=== PATIENT | female | born 2000 | race Asian ===

== ENCOUNTER 2024-02-09 17:30 | Inpatient (IN) ==
--- NOTE | 2024-02-09 18:25 | Emergency Department Note ---
Impression & Plan Depression, Mood disorder ED Provider Note NAME: DINA HENRY AGE: 23 SEX: F : 2000 ARRIVES VIA: [employer] INFORMANT: Patient ED PROVIDER(S): Omkar Bardales DO CHIEF COMPLAINT: Depression HPI: Patient is a 23-year-old female with a past medical history of a suicide attempt who presents to the ER from [facility]. She notes that she has been more depressed over the past week as someone is stating that they had sex with her and she is embarrassed and notes that it never happened. She notes that she has started cutting her arms again. She likes this yourself bleed as this makes her feel more comfortable. She denies any headache or change in vision. No chest pain or shortness of breath. No nausea, vomiting, or diarrhea. No dysuria, urgency, or frequency. No other exacerbating or remitting factors. ADDITIONAL HISTORY OBTAINED: Per HPI Chronic Medical/Social Conditions Affecting Care: Per HPI PAST MEDICAL HISTORY:See Below PAST SURGICAL HISTORY:See Below FAMILY HISTORY:See Below SOCIAL HISTORY:See Below HOME MEDICATIONS:See Below ALLERGIES:See Below VITALS:See Below PHYSICAL EXAMINATION: GENERAL: Sitting up in bed, alert, well appearing, well nourished, no distress, non-toxic EYE EXAM: normal conjunctiva. PERRL and EOM's grossly intact. OROPHARYNX: no exudate, no erythema, lips, buccal mucosa, and tongue normal and mucous membranes are moist NECK: supple, no nuchal rigidity, no adenopathy, non-tender LUNGS: Clear to auscultation. Normal chest wall mechanics HEART: no murmurs, S1 normal and S2 normal ABDOMEN: abdomen soft, non-tender, normo-active bowel sounds, no masses, no rebound or guarding. BACK: Back is symmetrical on inspection and there is no deformity, no midline tenderness, no CVA tenderness. SKIN: no rashes and no bruising UPPER EXTREMITIES: upper extremities are grossly normal. LOWER EXTREMITIES: No pitting edema. NEURO EXAM: Normal sensorium, cranial nerves II-XII grossly intact, normal speech, no gross weakness of arms, no gross weakness of legs. PSYCH: No suicidal or homicidal ideations. Admits to self-harm. No auditory visual hallucinations. MEDICAL DECISION MAKING: Patient is a 23-year-old female who presents ER for above-stated complaint. IV was established blood work is obtained. Labs show no significant leukocytosis or anemia. BMP on LFTs bilirubin was unremarkable. TSH was unremarkable. UA was contaminated. Tox was negative with exception of marijuana. Alcohol negative. COVID-negative. Patient was discussed with our psychiatric care transitions manager. Referrals made to [facility]. the patient was admitted to our psychiatric unit upstairs. Consults/Care Managements Discussions: Per MDM Triage Nursing notes reviewed. Limited review of prior medical records performed Vital Signs: reviewed and remarkable for no significant abnormalities Differential diagnosis: Mood disorder, infection, hypoglycemia, electrolyte abnormalities, cardiac sources, intracerebral event, toxicologic, trauma, neurologic, as well as other pathologies. ER treatment provided: See below Diagnostics interpreted by me include EKG and cardiac monitoring as listed below: -ECG: none -Laboratory studies:Interpreted by me as stated above in MDM and shown below. Imaging studies: Xrays: As interpreted by me:none CTs show: none Procedures:none Critical Care: None Past Med/Surg History Social History Smoking Status: Current every day smoker Tobacco Type: Cigarettes and E-cigarettes / Vaping Preferred Language: Luxembourgish Communication Ability: Effective [employer] Assistant Required: No Beliefs That Will Affect Care: None Feels Safe at Home: Yes Gender Identity: Female Assistive Devices: None Allergies Allergies Allergy/AdvReac Type Severity Reaction Status Date / Time Penicillins Allergy Unknown Unknown Verified 02/09/24 19:12 Home Meds Home Medications Medication Instructions Recorded Confirmed No Known Home Medications 02/09/24 02/09/24 Results & Data (ED) Vital Signs Vital Signs - 24 hr 02/09/24 17:41 02/09/24 19:33 Temperature 36.7 C Temperature Source Temporal Artery Scan Pulse Rate 74 Pulse Rate [Finger] 70 Respiratory Rate 18 15 Respiratory Effort / Characteristics Non-Labored Spontaneous Respiratory Depth Normal Blood Pressure 123/84 Blood Pressure [Left Arm] 106/65 Blood Pressure Mean 97 Blood Pressure Mean [Left Arm] 78 Blood Pressure Position Sitting Pulse Oximetry 97 98 Oxygen Delivery Method Room Air Sepsis Recent Fever Within 48 Hours No Sepsis New/Unexplained Change in Mental Status No Sepsis Action Taken by Nursing No Action Required Laboratory Data 02/09/24 17:55 02/09/24 17:55 Lab Results 02/09/24 02/09/24 02/09/24 Range/Units 17:55 17:59 18:14 WBC 10.40 (4.8-10.8) K/ul RBC 4.98 (4.20-5.40) M/uL Hgb 14.4 (12.0-16.0) g/dl Hct 42.0 (37.0-47.0) % MCV 84.3 (80.0-100.0) fL MCH 28.9 (25.0-34.0) pg MCHC 34.3 (32.0-36.0) g/dL RDW Std Deviation 37.2 (36.4-46.3) fL RDW Coeff of Mary 12.3 (11.5-14.5) % Plt Count 254 (130-400) K/uL MPV 10.2 (9.4-12.4) fL Immature Gran % (Auto) 0.2 % Neut % (Auto) 66.7 % Lymph % (Auto) 27.6 % [place] % (Auto) 3.7 % Eos % (Auto) 1.1 % Baso % (Auto) 0.7 % Neut # (Auto) 6.95 H (1.40-6.50) K/uL Lymph # (Auto) 2.87 (1.20-3.40) K/uL [place] # (Auto) 0.38 (0.11-0.59) K/uL Eos # (Auto) 0.11 (0.00-0.50) K/uL Baso # (Auto) 0.07 (0.00-0.20) K/uL Immature Gran # (Auto) 0.02 (0.01-0.20) K/uL Sodium 137 (136-145) mmol/L Potassium 3.5 (3.5-5.1) mmol/L Chloride 105 (98-107) mmol/L Carbon Dioxide 22 (21-32) mmol/L Anion Gap 10 (3-11) BUN 11 (6-23) mg/dl Creatinine 0.76 (0.6-1.2) mg/dl Est Cr Clr Drug Dosing 129.9 ml/min Est GFR ( Amer) 130.0 ml/min Est GFR (Non-Af Amer) 112.1 ml/min BUN/Creatinine Ratio 14.5 (10-20) Glucose 117 H (70-99(Fasting)) mg/dl Calcium 9.8 (8.6-10.3) mg/dl Total Bilirubin 1.0 (0.2-1.0) mg/dl AST 12 L (13-39) U/L ALT 10 (7-52) U/L Alkaline Phosphatase 44 (34-104) U/L Total Protein 7.9 (6.0-8.3) gm/dl Albumin 4.8 (3.4-5.0) gm/dl Globulin 3.1 (2.5-4.0) gm/dl Albumin/Globulin Ratio 1.5 (0.9-2) TSH 1.417 (0.300-4.500) uIu/ml Urine Color Yellow Urine Appearance Clear (Clear) Urine pH 7.5 (4.5-7.5) Ur Specific [place] 1.024 (1.000-1.030) Urine Protein Trace H (Negative) Urine Glucose (UA) Negative (Negative) Urine Ketones Trace H (Negative) Urine Blood Negative (Negative) Urine Nitrite Negative (Negative) Urine Bilirubin Negative (Negative) Urine Urobilinogen Negative (Negative) Ur Leukocyte Esterase Trace H (Negative) Urine WBC (Auto) 0-5 (0-5) /hpf Urine RBC (Auto) 0-2 (0-2) /hpf U Hyaline Cast (Auto) 0-2 (0-2) /lpf U Epithel Cells (Auto) 11-20 H (0-2) /hpf Urine Bacteria (Auto) 1+ H (None Seen) POC Ur Test NEG (NEG) Salicylates < 3.0 L (3.0-30) mg/dl Urine Opiates Screen Neg (Neg) Ur Methadone, Qual Neg (Neg) Acetaminophen < 3 L (10-30) ug/ml Urine Barbiturates Neg (Neg) Ur Phencyclidine (PCP) Neg (Neg) U Amphetamin/Meth Scrn Neg (Neg) MDMA (Ecstasy) Screen Neg (Neg) U Benzodiazepines Scrn Neg (Neg) Ur Cocaine Metabolite Neg (Neg) U Marijuana (THC) Screen Pos H (Neg) Ethyl Alcohol mg/dL < 10.0 (<10.0) mg/dl SARS-CoV-2, RNA, NAAT NEGATIVE (NEGATIVE) Administered Medications Discontinued Medications Nicotine (Nicotine 21 Mg/24 Hr Tdsy) 1 patch TD QAM TALA Stop: 03/10/24 19:14 Last Admin: 02/09/24 19:40 Dose: 1 patch Documented By: SKFelix Discharge Plan Visit Data Chief Complaint: Mental Health Evaluation Stated Complaint: 201 ED Provider: Omkar Bardales Discharge Problem: Depression, Mood disorder Patient Disposition: Admitted As Inpatient Discharge Instructions Interventions: ED Discharge Assessment Last Done: 02/09/24 21:05 Discharge Problem: Depression Qualifiers: Depression Type: unspecified Qualified Code(s): F32.A - Depression, unspecified
[2024-02-09 18:26] LABS: Basophils # (auto) 0.07 K/uL (0.00-0.20); Basophils % (auto) 0.7 %; Eosinophils # (auto) 0.11 K/uL (0.00-0.50); Eosinophils % (auto) 1.1 %; Hemoglobin 14.4 g/dl (12.0-16.0); Immature Granulocytes # (auto) 0.02 K/uL (0.01-0.20); Immature Granulocytes % (auto) 0.2 %; Lymphocytes # (auto) 2.87 K/uL (1.20-3.40); Lymphocytes % (auto) 27.6 %; Mean Corpuscular Hemoglobin 28.9 pg (25.0-34.0); Mean Corpuscular Hgb Conc 34.3 g/dL (32.0-36.0); Mean Corpuscular Volume 84.3 fL (80.0-100.0); Mean Platelet Volume 10.2 fL (9.4-12.4); Monocytes # (auto) 0.38 K/uL (0.11-0.59); Monocytes % (auto) 3.7 %; Neutrophils # (auto) 6.95 K/uL (1.40-6.50); Neutrophils % (auto) 66.7 %; Platelet Count 254 K/uL (130-400); RDW Coefficient of Variation 12.3 % (11.5-14.5); RDW Standard Deviation 37.2 fL (36.4-46.3); Red Blood Count 4.98 M/uL (4.20-5.40)
[2024-02-09 18:36] LABS: Appearance Urine Clear (Clear); Bacteria Urine Automated 1+ (None Seen); Bilirubin Urine Negative (Negative); Blood Urine Negative (Negative); Cast Urine Automated 0-2 /lpf (0-2); Color Urine Yellow; Glucose Urine UA Negative (Negative); Ketones Urine Trace (Negative); Leukocyte Esterase Urine Trace (Negative); Nitrite Urine Negative (Negative); Protein Urine Trace (Negative); Specific Gravity Urine 1.024 (1.000-1.030); Urobilinogen Urine Negative (Negative); WBC Urine Automated 0-5 /hpf (0-5); pH Urine 7.5 (4.5-7.5)
[2024-02-09 18:41] LABS: Albumin Globulin Ratio 1.5 (0.9-2); Albumin Level 4.8 gm/dl (3.4-5.0); BUN Creatinine Ratio 14.5 (10-20); Calcium 9.8 mg/dl (8.6-10.3); Creatinine Clr Calc Pharmacy 129.9 ml/min; Est GFR (Non-African American) 112.1 ml/min; Globulin 3.1 gm/dl (2.5-4.0); Potassium 3.5 mmol/L (3.5-5.1); Total Protein 7.9 gm/dl (6.0-8.3)
[2024-02-09 18:50] LABS: Acetaminophen < 3 ug/ml (10-30); Salicylate < 3.0 mg/dl (3.0-30)
[2024-02-09 18:51] LABS: RBC Urine Automated 0-2 /hpf (0-2)
[2024-02-09 18:56] LABS: Thyroid Stimulating Hormone 1.417 uIu/ml (0.300-4.500)
[2024-02-09 19:12] LABS: Amphetamines+Metham, Urine Neg (Neg); Barbiturates, Urine Neg (Neg); Benzodiazepine, Urine Neg (Neg); Cocaine, Urine Neg (Neg); MDMA (Ecstacy), Urine Neg (Neg); Marijuana, Urine Pos (Neg); Methadone, Urine Neg (Neg); Opiate, Urine Neg (Neg); Phencyclidine, Urine Neg (Neg)
[2024-02-09] MEDS ORDERED: NICOTINE POLACRILEX 2 MG GUM MT PRN (19:14)
[2024-02-09] MEDS: NICOTINE 21 MG/24 HR TDSY TD SCH (19:40)
[2024-02-09] MEDS ORDERED: ACETAMINOPHEN 325 MG TAB PO PRN (21:15)
[2024-02-09] MEDS ORDERED: BISMUTH SUBSALICYLATE LIQD 236 ML PO PRN (21:15)
[2024-02-09] MEDS ORDERED: ALUMINUM/MAGNESIUM SUSP 30 ML UDC PO PRN (21:15)
[2024-02-09] MEDS ORDERED: SODIUM CHLORIDE 0.65% NA SOLN 45 ML (OCEAN) PRN (21:15)
[2024-02-09] MEDS ORDERED: MAGNESIUM HYDROXIDE SUSP 30 ML UDC PO PRN (21:15)
[2024-02-09] MEDS ORDERED: OLANZapine 5 MG TABLET PO PRN (22:47)
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
[2024-02-10] MEDS: NICOTINE 21 MG/24 HR TDSY TD SCH (09:03)
[2024-02-10] MEDS: NICOTINE POLACRILEX 2 MG GUM MT PRN (14:56)
[2024-02-10] MEDS: LITHIUM CARBONATE 300 MG TAB PO SCH (20:44)
[2024-02-10] MEDS: hydrOXYzine HCl 25 MG TAB PO PRN (22:33)
--- NOTE | 2024-02-11 13:17 | Psychiatric Progress Note ---
Date of Service February 11, 2024 Impression / Recommendations Impression Susan Pryor" is responding well to treatment. There is evidence of residua symptoms that require further exploration and treatment. Overall I spent a total of 30 minutes for this admission including review of nathen rt records, review of labwork, direct evaluation of the patient, counseling the patient, ordering medication, risk assessment, and documentation in the electronic health record. (1) Bipolar disorder: Plan 02/10/19: -No medication changes. Continue Souris scheduled and Olanzapine PRN. -Continued inpatient hospitalization is medically necessary for ongoing monitoring and safety. -Impact of bipolar disorder and cognitive faculties including attention and concentration recommended to focus on treatment of mood disorder and only pursue evaluation for ADHD after there is a stability from the mood disorder standpoint. 02/10/2024: The patient was admitted to the [facility]) on q15 min checks (behavioral with suicide precautions) for safety. The patient will participate in group, recreational, and milieu therapies and will be offered additional individual and family sessions as clinically appropriate. -Start Souris 300mg HS Inventory Assets Strengths: supportive relationships, willing to get treatment Needs: safety and stabilization, medication adjustment, additional coping skills, increased outpatient services Suicide Risk Level Suicide Risk Level: High-Moderate (q15 min suicide checks) (mixed mood episode with SI and sef-harm urges with plan prior to admission but feels safe in the hospital, able to safety contract and agrees to let nursing/staff know should they develop plan, intent or feel unable to remain safe. ) Suicide Risk Level Comments: High-Moderate due to severe depression with SI with plan prior to admission but feels safe in the hospital, able to safety contract and agrees to let nursing/staff know should they develop plan, intent or feel unable to remain safe. Risk Factors Assessment Male: No : No Do You Have Access To A Gun?: No Health Problems: No Mental Health Diagnoses: Yes Previous Attempt: Yes Family History of Suicide: No Previous Psychiatric Hospitalization: No Interval History Identifying Information Susan Pryor" is a 23 year old female with a history of BPAD type II who was admitted for concern for increased urges for self-harm and impulsivity in the midst of a mixed episode. Chief Complaint "I am better now. The cutting if because when the blood goes out, my stress goes out." Review of Systems Notes Increased energy, very rapid thoughts, getting easily distracted. Sleep Information Total Hours of Sleep: 6.5 Sleep Comments: No PRNS Meal Information Percent Meal Consumed - Breakfast: 100 Percent Meal Consumed - Lunch: 100 Percent Meal Consumed - Dinner: 100 Subjective Subjective Patient was seen & assessed and interval progress reviewed with nursing. During our encounter, Isha explained that she is enrolled in school as [employer] student. The academic stressors are difficult to handle and times and she recurs to self harm in an attempt to cope with the stress. Isha told me that her mood is improved she had a good night of sleep and is tolerating her medication well. Isha raise concerns about having ADHD. Denied any suicidal ideation plan or intent. Isha told me that she is considering enrolling in boxing or other type of physical sport in order to use it as a stress relief technique instead of her typical behavior that includes self-harm. Send he had a dose of olanzapine as needed last night. Denies experiencing daytime sedation today. Physical Exam Psychiatric Orientation: alert and oriented x 3 Apperance: appropriately dressed Eye Contact: good eye contact Motor Behavior: no abnormal motor movements Affect: + elated affect; no depressed affect Mood: + anxious mood Thought Process: goal directed thought process Thought Content: not paranoid, no persecution and no hopelessness Suicidal Thoughts: denies suicidal thoughts Homicidal Thoughts: denies homicidal thoughts Hallucinations: no auditory hallucinations Estimated Intelligence: average estimated intelligence Insight: + fair insight Judgment: + fair judgement Vital Signs (Past 24 Hours) Last Vital Signs Temp 36.8 C 02/11/24 06:29 Pulse 64 02/11/24 06:29 Resp 16 02/11/24 06:29 BP 99/66 L 02/11/24 06:29 Pulse Ox 100 02/09/24 21:16 O2 Del Method Room Air 02/09/24 21:16 Results & Data ([facility]) Laboratory Results Microbiology 02/09/24 17:59 Urine,Clean Catch Urine Culture - Final More than three types of organisms present, all moderate counts mixed probable skin triny. No further identifications or sensitivities to follow. Labs 02/09/24 02/09/24 02/09/24 17:55 17:59 18:14 WBC 10.40 RBC 4.98 Hgb 14.4 Hct 42.0 MCV 84.3 MCH 28.9 MCHC 34.3 RDW Std Deviation 37.2 RDW Coeff of Mary 12.3 Plt Count 254 MPV 10.2 Immature Gran % (Auto) 0.2 Neut % (Auto) 66.7 Lymph % (Auto) 27.6 [place] % (Auto) 3.7 Eos % (Auto) 1.1 Baso % (Auto) 0.7 Neut # (Auto) 6.95 H Lymph # (Auto) 2.87 [place] # (Auto) 0.38 Eos # (Auto) 0.11 Baso # (Auto) 0.07 Immature Gran # (Auto) 0.02 Sodium 137 Potassium 3.5 Chloride 105 Carbon Dioxide 22 Anion Gap 10 BUN 11 Creatinine 0.76 Est Cr Clr Drug Dosing 129.9 Est GFR ( Amer) 130.0 Est GFR (Non-Af Amer) 112.1 BUN/Creatinine Ratio 14.5 Glucose 117 H Calcium 9.8 Total Bilirubin 1.0 AST 12 L ALT 10 Alkaline Phosphatase 44 Total Protein 7.9 Albumin 4.8 Globulin 3.1 Albumin/Globulin Ratio 1.5 TSH 1.417 Urine Color Yellow Urine Appearance Clear Urine pH 7.5 Ur Specific Point Clear 1.024 Urine Protein Trace H Urine Glucose (UA) Negative Urine Ketones Trace H Urine Blood Negative Urine Nitrite Negative Urine Bilirubin Negative Urine Urobilinogen Negative Ur Leukocyte Esterase Trace H Urine WBC (Auto) 0-5 Urine RBC (Auto) 0-2 U Hyaline Cast (Auto) 0-2 U Epithel Cells (Auto) 11-20 H Urine Bacteria (Auto) 1+ H POC Ur Test NEG Salicylates < 3.0 L Urine Opiates Screen Neg Ur Methadone, Qual Neg Acetaminophen < 3 L Urine Barbiturates Neg Ur Phencyclidine (PCP) Neg U Amphetamin/Meth Scrn Neg MDMA (Ecstasy) Screen Neg U Benzodiazepines Scrn Neg Ur Cocaine Metabolite Neg U Marijuana (THC) Screen Pos H Ethyl Alcohol mg/dL < 10.0 SARS-CoV-2, RNA, NAAT NEGATIVE Diagnostic Findings Bipolar disorder. MRE mixed Current Inpatient Medications Current Inpatient Medications: Current Inpatient Medications Acetaminophen (Acetaminophen 325 Mg Tab) 650 mg PO Q4H PRN PRN Reason: Headache or Minor Fever Stop: 03/10/24 21:14 Al Hydrox/Mg Hydrox/Simethicone (Aluminum/Magnesium Susp 30 Ml Udc) 30 ml PO Q4H PRN PRN Reason: GI Upset Stop: 03/10/24 21:14 Bismuth Subsalicylate (Bismuth Subsalicylate Liqd 236 Ml) 15 ml PO PRN PRN PRN Reason: Loose Stool Stop: 03/10/24 21:14 Hydroxyzine HCl (Hydroxyzine Hcl 25 Mg Tab) 50 mg PO HSZ PRN PRN Reason: Insomnia Stop: 03/10/24 21:14 Last Admin: 02/10/24 22:33 Dose: 50 mg Hydroxyzine HCl (Hydroxyzine Hcl 25 Mg Tab) 25 mg PO Q4H PRN PRN Reason: Anxiety Stop: 03/10/24 21:14 Souris Carbonate (Souris Carbonate 300 Mg Tab) 300 mg PO HS TALA Stop: 03/11/24 21:59 Last Admin: 02/10/24 20:44 Dose: 300 mg Magnesium Hydroxide (Magnesium Hydroxide Susp 30 Ml Udc) 30 ml PO DAILY PRN PRN Reason: Constipation Stop: 03/10/24 21:14 Miscellaneous (Remove Nicoderm Patch) 1 each N/A DAILY@0859 [facility] Stop: 03/11/24 08:58 Last Admin: 02/11/24 09:07 Dose: 1 each Nicotine (Nicotine 21 Mg/24 Hr Tdsy) 1 patch TD QAM TALA Stop: 03/11/24 08:59 Last Admin: 02/11/24 09:09 Dose: 1 patch Nicotine Polacrilex (Nicotine Polacrilex 2 Mg Gum) 1 piece MT PRN PRN PRN Reason: Nicotine Withdrawal Symptoms Stop: 03/10/24 21:14 Last Admin: 02/11/24 12:25 Dose: 1 piece Olanzapine (Olanzapine 5 Mg Tablet) 5 mg PO BID PRN PRN Reason: Agitation Stop: 03/11/24 08:59 Sodium Chloride (Sodium Chloride 0.65% Na Soln 45 Ml ([place])) 1 - 2 sprays NA PRN PRN PRN Reason: Nasal Dryness/Congestion Stop: 03/10/24 21:14 Mental Health & Subst Abuse Tx Therapist Name of Therapist: N/A Analytics Consultant Name of Analytics Consultant: N/A
[2024-02-11] MEDS: hydrOXYzine HCl 25 MG TAB PO PRN (22:03)
[2024-02-12 07:53] LABS: Marijuana Quant, GCMS Urine 694 ng/mL (<5)
--- NOTE | 2024-02-12 15:44 | Psychiatric Progress Note ---
Date of Service February 12, 2024 Impression / Recommendations Impression Susan Pryor" is responding well to treatment. There is evidence of residual symptoms that require further exploration and treatment. Overall I spent a total of 30 minutes for this admission including review of art records, direct evaluation of the patient, counseling the patient, and documentation in the electronic health record. (1) Bipolar disorder: Plan 02/11/19: -No medication changes. Continue [place] scheduled and Olanzapine PRN. Pending [place] level. -Continued inpatient hospitalization is medically necessary for ongoing monitoring and safety. 02/10/19: -No medication changes. Continue [place] scheduled and Olanzapine PRN. -Continued inpatient hospitalization is medically necessary for ongoing monitoring and safety. -Impact of bipolar disorder and cognitive faculties including attention and concentration recommended to focus on treatment of mood disorder and only pursue evaluation for ADHD after there is a stability from the mood disorder standpoint. 02/10/2024: The patient was admitted to the [facility] ([facility]) on q15 min checks (behavioral with suicide precautions) for safety. The patient will participate in group, recreational, and milieu therapies and will be offered additional individual and family sessions as clinically appropriate. -Start Sully 300mg HS Inventory Assets Strengths: supportive relationships, willing to get treatment Needs: safety and stabilization, medication adjustment, additional coping skills, increased outpatient services Suicide Risk Level Suicide Risk Level: High-Moderate (q15 min suicide checks) (mixed mood episode with SI and sef-harm urges with plan prior to admission but feels safe in the hospital, able to safety contract and agrees to let nursing/staff know should they develop plan, intent or feel unable to remain safe. ) Suicide Risk Level Comments: High-Moderate due to severe depression with SI with plan prior to admission but feels safe in the hospital, able to safety contract and agrees to let nursing/staff know should they develop plan, intent or feel unable to remain safe. Risk Factors Assessment Male: No : No Do You Have Access To A Gun?: No Health Problems: No Mental Health Diagnoses: Yes Previous Attempt: Yes Family History of Suicide: No Previous Psychiatric Hospitalization: No Interval History Identifying Information Susan Pryor" is a 23 year old female with a history of BPAD type II who was admitted for concern for increased urges for self-harm and impulsivity in the midst of a mixed episode. Chief Complaint "I need to get discharged. 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 Review of Systems Sleep Information Total Hours of Sleep: 6.5 Sleep Comments: No PRNS Meal Information Percent Meal Consumed - Breakfast: 100 Percent Meal Consumed - Lunch: 100 Percent Meal Consumed - Dinner: 100 Subjective Subjective Patient was seen & assessed and interval progress reviewed with nursing. Isha presented anxious, with pressured speech and appeared to have difficulty modulating her voice volume. She reported concerns about the implications of staying in the hospital in terms of her academic responsibilities. She described at length her next steps: final exams, chemist internship, summer courses. 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 According to staff, she was cheerful all morning, interacting well with staff and peers. She is tolerating medications well. Pending Sully level. Physical Exam Psychiatric Orientation: alert and oriented x 3 Apperance: appropriately dressed and appropriately groomed Eye Contact: good eye contact Motor Behavior: no abnormal motor movements Speech: + pressured speech and + loud speech Affect: + anxious affect and + elated affect Mood: + anxious mood Thought Process: goal directed thought process; no looseness of associations Thought Content: reality based without delusions; not paranoid, no persecution and no hopelessness Suicidal Thoughts: denies suicidal thoughts Homicidal Thoughts: denies homicidal thoughts Hallucinations: no auditory hallucinations and no visual hallucinations Cognition: recent memory grossly intact, remote memory grossly intact, attention grossly intact and language grossly intact Estimated Intelligence: average estimated intelligence and consistent with education level Insight: + fair insight Judgment: + fair judgement Vital Signs (Past 24 Hours) Last Vital Signs Temp 36.9 C 02/12/24 06:30 Pulse 67 02/12/24 06:30 Resp 16 02/12/24 06:30 BP 103/72 02/12/24 06:30 Pulse Ox 100 02/09/24 21:16 O2 Del Method Room Air 02/09/24 21:16 Results & Data ([facility]) Laboratory Results Laboratory Results - last 24 hr 02/09/24 17:59 U Marijuana THC Carboxy 694 H Drug Screen Comment SEE NOTE Current Inpatient Medications Current Inpatient Medications: Current Inpatient Medications Acetaminophen (Acetaminophen 325 Mg Tab) 650 mg PO Q4H PRN PRN Reason: Headache or Minor Fever Stop: 03/10/24 21:14 Al Hydrox/Mg Hydrox/Simethicone (Aluminum/Magnesium Susp 30 Ml Udc) 30 ml PO Q4H PRN PRN Reason: GI Upset Stop: 03/10/24 21:14 Bismuth Subsalicylate (Bismuth Subsalicylate Liqd 236 Ml) 15 ml PO PRN PRN PRN Reason: Loose Stool Stop: 03/10/24 21:14 Hydroxyzine HCl (Hydroxyzine Hcl 25 Mg Tab) 50 mg PO HSZ PRN PRN Reason: Insomnia Stop: 03/10/24 21:14 Last Admin: 02/10/24 22:33 Dose: 50 mg Hydroxyzine HCl (Hydroxyzine Hcl 25 Mg Tab) 25 mg PO Q4H PRN PRN Reason: Anxiety Stop: 03/10/24 21:14 Last Admin: 02/11/24 22:03 Dose: 25 mg Sully Carbonate (Sully Carbonate 300 Mg Tab) 300 mg PO HS TALA Stop: 03/11/24 21:59 Last Admin: 02/11/24 21:04 Dose: 300 mg Magnesium Hydroxide (Magnesium Hydroxide Susp 30 Ml Udc) 30 ml PO DAILY PRN PRN Reason: Constipation Stop: 03/10/24 21:14 Miscellaneous (Remove Nicoderm Patch) 1 each N/A DAILY@0859 [facility] Stop: 03/11/24 08:58 Last Admin: 02/12/24 08:58 Dose: 1 each Nicotine (Nicotine 21 Mg/24 Hr Tdsy) 1 patch TD QAM [facility] Stop: 03/11/24 08:59 Last Admin: 02/12/24 09:01 Dose: 1 patch Nicotine Polacrilex (Nicotine Polacrilex 2 Mg Gum) 1 piece MT PRN PRN PRN Reason: Nicotine Withdrawal Symptoms Stop: 03/10/24 21:14 Last Admin: 02/12/24 09:22 Dose: 1 piece Olanzapine (Olanzapine 5 Mg Tablet) 5 mg PO BID PRN PRN Reason: Agitation Stop: 03/11/24 08:59 Sodium Chloride (Sodium Chloride 0.65% Na Soln 45 Ml ([place])) 1 - 2 sprays NA PRN PRN PRN Reason: Nasal Dryness/Congestion Stop: 03/10/24 21:14 Mental Health & Subst Abuse Tx Therapist Name of Therapist: N/A Instrument And Control Technician Name of Instrument And Control Technician: N/A (1) Bipolar disorder Current bipolar episode type: mixed Psychotic features: without psychotic features Active/Remission status: currently active
--- NOTE | 2024-02-13 13:19 | Psychiatric Progress Note ---
Date of Service February 13, 2024 Impression / Recommendations Impression Susan Pryor" is responding well to treatment. There is evidence of residual symptoms that require further exploration and treatment. There is evidence of symptoms consistent with depression, robert or psychosis. Interacts well with peers and staff. Improved insight and judgement. Overall I spent a total of 25 minutes for this admission including review of chart records, direct evaluation of the patient, counseling the patient, and documentation in the electronic health record. (1) Bipolar disorder: Plan 02/12/19: -No medication changes. Continue [place] scheduled and Olanzapine PRN. Pending [place] level. -Approaching baseline. Will prepare for discharge tomorrow after family meeting. 02/11/19: -No medication changes. Continue [place] scheduled and Olanzapine PRN. Pending [place] level. -Continued inpatient hospitalization is medically necessary for ongoing monitoring and safety. 02/10/19: -No medication changes. Continue [place] scheduled and Olanzapine PRN. -Continued inpatient hospitalization is medically necessary for ongoing monitoring and safety. -Impact of bipolar disorder and cognitive faculties including attention and concentration recommended to focus on treatment of mood disorder and only pursue evaluation for ADHD after there is a stability from the mood disorder standpoint. 02/10/2024: The patient was admitted to the [facility] ([facility] unit) on q15 min checks (behavioral with suicide precautions) for safety. The patient will participate in group, recreational, and milieu therapies and w ill be offered additional individual and family sessions as clinically appropriate. -Start [place] 300mg HS Inventory Assets Strengths: supportive relationships, willing to get treatment Needs: safety and stabilization, medication adjustment, additional coping skills, increased outpatient services Suicide Risk Level Suicide Risk Level: High-Moderate (q15 min suicide checks) (mixed mood episode with SI and sef-harm urges with plan prior to admission but feels safe in the hospital, able to safety contract and agrees to let nursing/staff know should they develop plan, intent or feel unable to remain safe. ) Suicide Risk Level Comments: High-Moderate due to severe depression with SI with plan prior to admission but feels safe in the hospital, able to safety contract and agrees to let nursing/staff know should they develop plan, intent or feel unable to remain safe. Risk Factors Assessment Male: No : No Do You Have Access To A Gun?: No Health Problems: No Mental Health Diagnoses: Yes Previous Attempt: Yes Family History of Suicide: No Previous Psychiatric Hospitalization: No Interval History Identifying Information Susan Pryor" is a 23 year old female with a history of BPAD type II who was admitted for concern for increased urges for self-harm and impulsivity in the midst of a mixed episode. Chief Complaint "I've learned a lot". Review of Systems Sleep Information Total Hours of Sleep: 6.5 Sleep Comments: No PRNS Meal Information Percent Meal Consumed - Breakfast: 100 Percent Meal Consumed - Lunch: 100 Percent Meal Consumed - Dinner: 100 Subjective Subjective Patient was seen & assessed and interval progress reviewed with treatment team, nursing and social work. Patient indicated her mood is improved. She denied side effects form medications. We discussed risks/benefits/alternatives reviewed lithium for mood stabilization. Discussion included but was not limited to risks of toxicity in overdose and need for ongoing blood monitoring (levels, kidney function, and thyroid). The patient was made aware to avoid regular use of NSAIDs as can increase levels and that lithium may need to be held during GI or other illnesses that result in dehyrdation. The patient is not currently and agrees to use reliable control as may be associated with heart defects (Ebstein's anomaly). Physical Exam Mental Examination Appearance: Well Groomed Eye Contact: Maintains Eye Contact Motor Behavior: Unremarkable Speech: Normal Mood: Calm Affect: Appropriate Thought Process: Intact Hallucinations: None Insight: Fair Judgement: Fair Psychiatric Orientation: alert and oriented x 3 Apperance: appropriately dressed and appropriately groomed Eye Contact: good eye contact Motor Behavior: no abnormal motor movements Speech: + pressured speech, + loud speech and normal rate/rhythm/volume of speech Affect: + anxious affect, + labile affect and + elated affect; no depressed affect and + mood not congruent with affect (elevated and incongruent at times ) Mood: + depressed mood and + anxious mood Thought Process: goal directed thought process and + circumstantial thought process; no looseness of associations Thought Content: reality based without delusions; not paranoid, no persecution and no hopelessness Suicidal Thoughts: denies suicidal thoughts, denies suicidal plan (none for hospital, outside to cut) and denies suicidal intent Homicidal Thoughts: denies homicidal thoughts Hallucinations: no auditory hallucinations and no visual hallucinations Cognition: recent memory grossly intact, remote memory grossly intact, attention grossly intact and language grossly intact Estimated Intelligence: average estimated intelligence and consistent with [facility] level Insight: + fair insight Judgment: + limited judgement and + fair judgement Vital Signs (Past 24 Hours) Last Vital Signs Temp 36.7 C 02/13/24 06:30 Pulse 70 02/13/24 06:30 Resp 16 02/13/24 06:30 BP 110/73 02/13/24 06:30 Pulse Ox 100 02/09/24 21:16 O2 Del Method Room Air 02/09/24 21:16 Results & Data ([facility]) Current Inpatient Medications Current Inpatient Medications: Current Inpatient Medications Acetaminophen (Acetaminophen 325 Mg Tab) 650 mg PO Q4H PRN PRN Reason: Headache or Minor Fever Stop: 03/10/24 21:14 Al Hydrox/Mg Hydrox/Simethicone (Aluminum/Magnesium Susp 30 Ml Udc) 30 ml PO Q4H PRN PRN Reason: GI Upset Stop: 03/10/24 21:14 Bismuth Subsalicylate (Bismuth Subsalicylate Liqd 236 Ml) 15 ml PO PRN PRN PRN Reason: Loose Stool Stop: 03/10/24 21:14 Hydroxyzine HCl (Hydroxyzine Hcl 25 Mg Tab) 50 mg PO HSZ PRN PRN Reason: Insomnia Stop: 03/10/24 21:14 Last Admin: 02/10/24 22:33 Dose: 50 mg Hydroxyzine HCl (Hydroxyzine Hcl 25 Mg Tab) 25 mg PO Q4H PRN PRN Reason: Anxiety Stop: 03/10/24 21:14 Last Admin: 02/11/24 22:03 Dose: 25 mg [place] Carbonate ([place] Carbonate 300 Mg Tab) 300 mg PO HS TALA Stop: 03/11/24 21:59 Last Admin: 02/12/24 21:40 Dose: 300 mg Magnesium Hydroxide (Magnesium Hydroxide Susp 30 Ml Udc) 30 ml PO DAILY PRN PRN Reason: Constipation Stop: 03/10/24 21:14 Miscellaneous (Remove Nicoderm Patch) 1 each N/A DAILY@0859 [facility] Stop: 03/11/24 08:58 Last Admin: 02/13/24 08:26 Dose: 1 each Nicotine (Nicotine 21 Mg/24 Hr Tdsy) 1 patch TD QAM [facility] Stop: 03/11/24 08:59 Last Admin: 02/13/24 08:26 Dose: 1 patch Nicotine Polacrilex (Nicotine Polacrilex 2 Mg Gum) 1 piece MT PRN PRN PRN Reason: Nicotine Withdrawal Symptoms Stop: 03/10/24 21:14 Last Admin: 02/13/24 10:04 Dose: 1 piece Olanzapine (Olanzapine 5 Mg Tablet) 5 mg PO BID PRN PRN Reason: Agitation Stop: 03/11/24 08:59 Sodium Chloride (Sodium Chloride 0.65% Na Soln 45 Ml ([place])) 1 - 2 sprays NA PRN PRN PRN Reason: Nasal Dryness/Congestion Stop: 03/10/24 21:14 Mental Health & Subst Abuse Tx Psychiatrist Name of Psychiatrist: Rupert Djeesus- Phan Velez Psychiatrist's Date Of Appointment With Psychiatric Provider: 02/20/2024 Time of Appointment with Psychiatrist: 2:15pm Psychiatric Appointment Comment: [address] [place] [address] Therapist Name of Therapist: Martha Myles-Radha Nagel Therapist's Date of Therapist Appointment: 02/15/24 Time of Therapist Appointment: 1:00pm (arrive at 12:30) Therapy Appointment Comment: [address], [place] [address] Academic Guidance Specialist Name of Academic Guidance Specialist: [facility] Phone Number for Academic Guidance Specialist: [phone] Date of Appointment with Academic Guidance Specialist: 02/16/24 Time of Appointment with Academic Guidance Specialist: 10am Case Management Appointment Comment: Zoom link will be sent to [employer] email Post Discharge Appointments Primary Care Physician Name Of Family Doctor/PCP: [facility] Time of Appointment with PCP: Please follow up as needed Provider Appointment Comment: [facility] Contact Information Discharge Discharge Address: [facility] [address], [facility], [place] [address] (1) Bipolar disorder Active/Remission status: currently active Current bipolar episode type: mixed Psychotic features: without psychotic features
--- NOTE | 2024-02-14 09:08 | Discharge Summary ---
Date of Service February 14, 2024 History of Present Illness Isha came to the hospital after the recommendation of a provider at [facility] where she was seen yesterday for an urgent appointment and reported increased thoughts of self-harm and uncertainty about being able to remain safe given thoughts of suicide and that often when she starts to self-harm more frequently she will cut deeper and deeper and head "toward suicide". She reports recent hypomanic vs manic episodes about two weeks ago and since then feels she is heading into a depressive episode. She reports ongoing stressors of academic stress, especially since transitioning to [facility], limited social support, and increased alcohol and cannabis use. She describes depressive symptoms of low energy, social isolation, "crying out of no where", low motivation, and "thoughts in my head of cut yourself and bled" and she feels she has to act on this or the thought won't go away. She denies any command AH, notes it is an internal thought not a voice. She's also been experiencing intermittent thoughts of suicide. She also experiences anxiety with panic attacks about once per month and a lot of generalized worries, social worries about how she is perceived, body image concerns and academic stress. She experienced a traumatic event in September and since then has experienced more nausea and sometimes vomiting when she is anxious. She is not currently prescribed any psychiatric medications. She notes it is hard to stay on psychiatric medications "especially during the hyper moods because I feel like everything is fine, 'I'm good'". Psychiatric ROS notable for history of prior diagnosis of BPAD type II for hypomanic episodes she notes experiencing heightened sexual desire, increased irritability with driving and more risk taking when driving if others are going slowly, decreased sleep, increased energy, very rapid thoughts, getting easily distracted, cleaning her room/engaging in increased goal directed activities but never accomplishes much. She denies any history of psychosis, PTSD, OCD nor eating disorder. Physical Exam Mental Examination Appearance: Well Groomed Eye Contact: Maintains Eye Contact Motor Behavior: Unremarkable Speech: Normal Mood: Calm Affect: Appropriate Thought Process: Intact Hallucinations: None Insight: Fair Judgement: Fair Psychiatric Orientation: alert and oriented x 3 Apperance: appropriately dressed and appropriately groomed Eye Contact: good eye contact Motor Behavior: no abnormal motor movements Speech: normal rate/rhythm/volume of speech Affect: euthymic affect Mood: no depressed mood Thought Process: goal directed thought process Thought Content: not paranoid, no persecution and no hopelessness Suicidal Thoughts: denies suicidal thoughts Homicidal Thoughts: denies homicidal thoughts Hallucinations: no auditory hallucinations and no visual hallucinations Cognition: recent memory grossly intact, remote memory grossly intact, attention grossly intact and language grossly intact Estimated Intelligence: average estimated intelligence and consistent with education level Insight: good insight Judgment: good judgement Vital Signs (Past 24 Hours) Last Vital Signs Temp 37 C 02/14/24 06:34 Pulse 82 02/14/24 06:35 Resp 16 02/14/24 06:34 BP 108/72 02/14/24 06:35 Pulse Ox 100 02/09/24 21:16 O2 Del Method Room Air 02/09/24 21:16 Principal Diagnosis Bipolar Disorder Psychiatric Data See daily stay summary. In short, safety was maintained and the patient was cooperative with care. Medication changes included started [place] on 02/09/23 and they tolerated this well. A family session was held on 02/14/24 and safety plan was completed prior to discharge. Day of Discharge Assessment Today the patient voices readiness for discharge. They note improvement in mood and deny thoughts to harm self or others. Thoughts remain organized and they are improved from admission. There is no evidence of psychosis. They agree to take mediations as prescribed and keep follow-up appointments. They are stable for discharge to outpatient level of care. Overall I spent a total of 45 minutes for this admission including review of c dresher records, direct evaluation of the patient, counseling the patient, and documentation in the electronic health record. Transition of Care Transition Of Care Record: was reviewed with the patient Advance Directives Advance Directives Information Provided: Yes Advance Directives: No Mental Health Advance Directive: No Advance Directives on File: No Living Will: No Power of Materials Handler: No Advance Directives Reason:: Declines as Mental Health Visit. Suicide Risk Level Suicide Risk Level Comments: High-Moderate due to severe depression with SI with plan prior to admission but feels safe in the hospital, able to safety contract and agrees to let nursing/staff know should they develop plan, intent or feel unable to remain safe. Risk Factors Assessment Male: No : No Do You Have Access To A Gun?: No Health Problems: No Mental Health Diagnoses: Yes Previous Attempt: Yes Family History of Suicide: No Previous Psychiatric Hospitalization: No Discharge Data Lab Results 02/09/24 02/09/24 02/09/24 17:55 17:59 18:14 WBC 10.40 RBC 4.98 Hgb 14.4 Hct 42.0 MCV 84.3 MCH 28.9 MCHC 34.3 RDW Std Deviation 37.2 RDW Coeff of Mary 12.3 Plt Count 254 MPV 10.2 Immature Gran % (Auto) 0.2 Neut % (Auto) 66.7 Lymph % (Auto) 27.6 [place] % (Auto) 3.7 Eos % (Auto) 1.1 Baso % (Auto) 0.7 Neut # (Auto) 6.95 H Lymph # (Auto) 2.87 [place] # (Auto) 0.38 Eos # (Auto) 0.11 Baso # (Auto) 0.07 Immature Gran # (Auto) 0.02 Sodium 137 Potassium 3.5 Chloride 105 Carbon Dioxide 22 Anion Gap 10 BUN 11 Creatinine 0.76 Est Cr Clr Drug Dosing 129.9 Est GFR ( Amer) 130.0 Est GFR (Non-Af Amer) 112.1 BUN/Creatinine Ratio 14.5 Glucose 117 H Calcium 9.8 Total Bilirubin 1.0 AST 12 L ALT 10 Alkaline Phosphatase 44 Total Protein 7.9 Albumin 4.8 Globulin 3.1 Albumin/Globulin Ratio 1.5 TSH 1.417 Urine Color Yellow Urine Appearance Clear Urine pH 7.5 Ur Specific [place] 1.024 Urine Protein Trace H Urine Glucose (UA) Negative Urine Ketones Trace H Urine Blood Negative Urine Nitrite Negative Urine Bilirubin Negative Urine Urobilinogen Negative Ur Leukocyte Esterase Trace H Urine WBC (Auto) 0-5 Urine RBC (Auto) 0-2 U Hyaline Cast (Auto) 0-2 U Epithel Cells (Auto) 11-20 H Urine Bacteria (Auto) 1+ H POC Ur Test NEG Salicylates < 3.0 L Urine Opiates Screen Neg Ur Methadone, Qual Neg Acetaminophen < 3 L Urine Barbiturates Neg Ur Phencyclidine (PCP) Neg U Amphetamin/Meth Scrn Neg MDMA (Ecstasy) Screen Neg U Benzodiazepines Scrn Neg Ur Cocaine Metabolite Neg U Marijuana (THC) Screen Pos H U Marijuana THC Carboxy 694 H Drug Screen Comment SEE NOTE Ethyl Alcohol mg/dL < 10.0 SARS-CoV-2, RNA, NAAT NEGATIVE Hospital Course (1) Bipolar disorder: Plan 4/23/24: -DIscharge today after family meeting -Broadmoor level will need to be perform in OP since vandana has neen on low dose for only 4 days, She was educated about this. Reiterated risks/benefits/alternatives reviewed lithium for mood stabilization. emphasis made on the need to use reliable control as may be associated with heart defects (Ebstein's anomaly). 02/13/24: -No medication changes. Continue [place] scheduled and Olanzapine PRN. Pending [place] level. -Approaching baseline. Will prepare for discharge tomorrow after family meeting. 02/12/24: -No medication changes. Continue [place] scheduled and Olanzapine PRN. Pending [place] level. -Continued inpatient hospitalization is medically necessary for ongoing monitoring and safety. 02/11/24: -No medication changes. Continue [place] scheduled and Olanzapine PRN. -Continued inpatient hospitalization is medically necessary for ongoing monitoring and safety. -Impact of bipolar disorder and cognitive faculties including attention and concentration recommended to focus on treatment of mood disorder and only pursue evaluation for ADHD after there is a stability from the mood disorder standpoint. 02/10/2024: The patient was admitted to the [facility] ([facility] mental health unit) on q15 min checks (behavioral with suicide precautions) for safety. The patient will participate in group, recreational, and milieu therapies and will be offered additional individual and family sessions as clinically appropriate. -Start [place] 300mg HS Mental Health & Subst Abuse Tx Psychiatrist Name of Psychiatrist: Rupert Velez Psychiatrist's Date Of Appointment With Psychiatric Provider: 02/20/2024 Time of Appointment with Psychiatrist: 2:15pm Psychiatric Appointment Comment: [address] [place] [address] Therapist Name of Therapist: Martha Myles-Radha Nagel Therapist's Date of Therapist Appointment: 02/15/24 Time of Therapist Appointment: 1:00pm (arrive at 12:30) Therapy Appointment Comment: [address], [place] [address] Industrial Maintenance Technician Name of Industrial Maintenance Technician: [facility] Phone Number for Industrial Maintenance Technician: [phone] Date of Appointment with Industrial Maintenance Technician: 02/16/24 Time of Appointment with Industrial Maintenance Technician: 10am Case Management Appointment Comment: Zoom link will be sent to [facility] email Post Discharge Appointments Primary Care Physician Name Of Family Doctor/PCP: [facility] Primary Care Time of Appointment with PCP: Please follow up as needed Provider Appointment Comment: [facility] Contact Information Discharge Discharge Address: [address], [place] [address] Discharge Plan Discharge Items Patient Disposition: Home - Self-Care Reason For Visit: UNSPECIFIED DEPRESSIVE D/O Discharge Diagnosis: Bipolar disorder most recent episode depressed. Activity: Resume your previous activity Non-emergency contact: Primary Care Provider, Psychiatrist and Therapist Call non-emergency contact if: you have any medication questions and your symptoms worsen Follow-up/Referrals: [place],[facility] [Primary Care Provider] - Diet: Regular Addtl Attending Provider Instructions: SPECIAL CARE INSTRUCTIONS: 1. Follow through with your scheduled aftercare appointments. If unable to keep an appointment, please call to reschedule. 2. Take your medication only as prescribed. Medication should not be changed or stopped without the approval of your doctor. In the event of worsening symptoms or concerns about side effects, contact your doctor immediately. 3. Utilize new healthy coping skills, anger management skills, and stress management skills learned during your hospitalization. Journal feelings and process them with a support person. Identify stressors or situations that may result in relapse, deterioration or inappropriate behaviors and develop a plan to deal with those issues. 4. If your coping skills are ineffective and you are in crisis, contact your outpatient providers for direction. If unable to reach your providers, please call the [facility] CRISIS LINE AT , go to the [facility] walk-in center at [address], [address], [place], or go to the closest Emergency Room. 5. Avoid alcohol and un-prescribed drugs. 6. You have been provided with the Mental Health Advance Directives Pamphlet for your review. 7. Your condition is stable for discharge to outpatient level of care, but recovery is an ongoing process. Ifthoughts to harm yourself or others return, follow the safety plan developed during your stay. Planning for a safe return home includes securing weapons. Our treatment team recommends weaponsbe removed from the home until your outpatient provider reassesses your progress. In rare cases where the items themselvescannot be removed, guns and ammunitionshould be secured separatelyand keys stored by a reliable personoutside of the home. If you were admitted on an involuntary commitment, the police or other legal authorities may be involved in this process. AFTERCARE APPOINTMENTS: * Please call your insurance company prior to your scheduled appointment to confirm your aftercare providers are covered. Take your insurance information to your appointments. WHO TO CALL AND WHEN: Medical Emergencies: For questions or emergencies related to your hospital stay, please contact the Inpatient Behavioral Health Unit at [phone]. A food counselor is on-call 16/05 for the Behavioral Health Unit for emergencies At any time you feel your situation is an emergency, you may also call 911 immediately or the [facility] suicide helpline 988. Pending Studies at Discharge: No Stand-Alone Forms: My [employer], Smoking Cessation Medications and DC Order Prescriptions: New olanzapine 5 mg Tablet 5 mg PO BID PRN (Reason: agitation) 15 Days Qty: 30 0RF lithium carbonate 300 mg Tablet 300 mg PO HS 30 Days Qty: 30 0RF Discharge Orders: Discharge Order (Routine); Ordered 02/14/24 Ordered By: Piedad Casillas/Other Patient Handouts: ED Bipolar Disorder Admission Data Admit Date/Time: 02/09/24 20:52 Attending Provider: Judy Austin Admit Provider: Judy Austin Primary Care Provider: [facility] Other Interventions: Discharge Summary Assessment (RN) Last Done: 02/14/24 09:38 Coding [place] [address] D/C day mgmt > 30 min Patient Type Established History Problem Focused Exam Problem Focused Medical Decision Making Moderate Complexity Diagnoses Bipolar disorder F31.9 Active/Remission status: currently active Current bipolar episode type: mixed Psychotic features: without psychotic features Time Spent (min) 45
== END 2024-02-14 11:08 | disposition home or self-care (01) | DRG 885 ==
LOC: ED 17:30 → 3S 20:52